=== PATIENT | male | born 1995 | race Caucasian/White ===

== ENCOUNTER 2016-06-18 01:38 | Emergency (ER) | payer OTHER ==
[2016-06-18] MEDS ORDERED: NS 1,000 ML IV ONE (01:43)
[2016-06-18] MEDS ORDERED: ONDANSETRON 4 MG/2 ML VIAL IVP ONE (01:43)
--- NOTE | 2016-06-18 01:43 | EDPHY ---
H & P HPI/ROS: HPI CHIEF COMPLAINT: Alcohol intoxication HISTORY OF PRESENT ILLNESS: This patient is a 20-year-old male may contact with EMS and police after he laid down on the sidewalk highly intoxicated with alcohol. There was no trauma reported. He presents emergency room somewhat somnolent however highly intoxicated with alcohol. Patient tells me he has not drank any alcohol this evening. History and review of systems somewhat limited due the patient's acute alcohol intoxication. Past Medical History: Unknown medical history Past Surgical History: Unknown surgical history Social History: [employer] student, denies drug use alcohol tobacco however obviously intoxicated here in the emergency room Family History: ROS REVIEW OF SYSTEMS: A comprehensive 10 point review of systems is otherwise negative aside from elements mentioned in the history of present illness. Exam Constitutional smells of alcohol, highly intoxicated with alcohol, somnolent triage nursing summary reviewed, vital signs reviewed Eyes normal conjunctivae and sclera, EOMI, PERRLA. HENT normal inspection, atraumatic, moist mucus membranes, no epistaxis, neck supple/ no meningismus, no raccoon eyes. Respiratory clear to auscultation bilaterally, normal breath sounds, no respiratory distress, no wheezing. Cardiovascular rate normal, regular rhythm, no murmur, no edema, distal pulses normal. Gastrointestinal soft, non-tender, no rebound, no guarding, normal bowel sounds, no distension, no pulsatile mass. Genitourinary no CVA tenderness. Musculoskeletal no midline vertebral tenderness, full range of motion, no calf swelling, no tenderness of extremities, no meningismus, good pulses, neurovascularly intact. Skin pink, warm, & dry, no rash, skin atraumatic. Neurologic horizontal beating nystagmus consistent with acute alcohol intoxication, responds to verbal stimuli. Psychiatric normal mood/affect. Heme/Lymph/Immune no lymphadenopathy. Differential Diagnosis: Includes but is not limited to in a particular order, acute alcohol intoxication, alcohol abuse, acute nausea vomiting from alcohol possible other substance Medical Decision Making: Patient had an IV established patient be given IV fluids and Zofran for nausea control will check an alcohol level. He will be placed on monitor for close observation. Re-evaluation: 0454: Re-evaluation at this time this patient still highly intoxicated with alcohol requiring supplemental oxygen. He is resting comfortably not vomiting. He will need further re-evaluation. 0608: re-evaluation this time this patient ambulated well to the bathroom without difficulty he is much more sober nail he is not slurring his speech she answers questions appropriately he does not have an ataxic gait. He will be discharged from the ER. Source: EMS Constitutional: Initial Vital Signs Temperature (C) 36.8 C 06/18/16 01:46 Heart Rate 88 06/18/16 01:46 Respiratory Rate 14 06/18/16 01:46 Blood Pressure 144/70 H 06/18/16 01:46 O2 Sat (%) 97 06/18/16 01:46 O2 Delivery Mode Nasal Cannula O2 (L/minute) 3 Allergies/Adverse Reactions: No Known Allergies Allergy (Unverified 06/18/16 01:45) Home Medications: Medication Instructions Recorded NK [No Known Home Meds] 06/18/16 Medical Decision Making - Data Points Laboratory Results: Laboratory Results 06/18/16 01:45 06/18/16 01:45 06/18/16 01:45 WBC 10.18 H 10^3/uL (3.80-9.50) RBC 5.49 10^6/uL (4.40-6.38) Hgb 17.2 g/dL (13.7-17.5) Hct 52.0 H % (40.0-51.0) MCV 94.7 fL (81.5-99.8) MCH 31.3 pg (27.9-34.1) MCHC 33.1 g/dL (32.4-36.7) RDW 12.2 % (11.5-15.2) Plt Count 165 10^3/uL (150-400) MPV 12.2 H fL (8.7-11.7) Neut % (Auto) 33.9 L % (39.3-74.2) Lymph % (Auto) 55.7 H % (15.0-45.0) [place] % (Auto) 6.8 % (4.5-13.0) Eos % (Auto) 2.4 % (0.6-7.6) Baso % (Auto) 1.0 % (0.3-1.7) Nucleat RBC Rel Count 0.0 % (0.0-0.2) Absolute Neuts (auto) 3.46 10^3/uL (1.70-6.50) Absolute Lymphs (auto) 5.67 H 10^3/uL (1.00-3.00) Absolute Monos (auto) 0.69 10^3/uL (0.30-0.80) Absolute Eos (auto) 0.24 10^3/uL (0.03-0.40) Absolute Basos (auto) 0.10 10^3/uL (0.02-0.10) Absolute Nucleated RBC 0.00 10^3/uL (0-0.01) Immature Gran % 0.2 % (0.0-1.1) Immature Gran # 0.02 10^3/uL (0.00-0.10) Sodium 148 H mEq/L (134-144) Potassium 3.6 mEq/L (3.5-5.2) Chloride 106 mEq/L (97-110) Carbon Dioxide 25 mEq/l (22-31) Anion Gap 17 mEq/L (8-16) BUN 9 mg/dL (7-23) Creatinine 1.3 mg/dL (0.7-1.3) Estimated GFR > 60 Glucose 138 H mg/dL (70-100) Calcium 9.1 mg/dL (8.5-10.4) Salicylates < 1.0 L mg/dL (2.0-20.0) Acetaminophen < 10 L mcg/mL (10.0-30.0) Ethyl Alcohol 282 H mg/dL (0-10) Medications Given: Discontinued Medications Sodium Chloride (Ns) 1,000 mls @ 0 mls/hr IV ONCE ONE PRN Reason: Wide Open Stop: 06/18/16 01:44 Last Admin: 06/18/16 01:54 Dose: 1,000 mls Ondansetron HCl (Zofran) 4 mg IVP EDNOW ONE Stop: 06/18/16 01:44 Last Admin: 06/18/16 01:55 Dose: 4 mg Departure - Departure Disposition: Home, Routine, Self-Care Clinical Impression: Alcoholic intoxication Qualifiers: Complication of substance-induced condition: uncomplicated Qualifier Code: ( F10.120) Alcohol abuse with intoxication, uncomplicated Condition: Good Instructions: Alcohol Intoxication (ED) Referrals: Patient,NotPresent [Primary Care Provider] - As per Instructions
[2016-06-18 01:59] LABS: % IMMATURE GRANULYOCYTES 0.2 % (0.0-1.1); ABSOLUTE IMMATURE GRANULOCYTES 0.02 10^3/uL (0.00-0.10); ADD DIFF? NO; ADD MORPH? NO; ADD SCAN? NO; ATYPICAL LYMPHOCYTE FLAG 0 (0-99); FRAGMENT RBC FLAG 0 (0-99); HEMOGLOBIN 17.2 g/dL (13.7-17.5); LEFT SHIFT FLG 0 (0-99); LIPEMIA HEMOLYSIS FLAG 80 (0-99); MEAN CELL HEMOGLOBIN 31.3 pg (27.9-34.1); MEAN CELL HEMOGLOBIN CONCENTR. 33.1 g/dL (32.4-36.7); MEAN CELL VOLUME 94.7 fL (81.5-99.8); MEAN PLATELET VOLUME 12.2 fL (8.7-11.7); PLATELET CLUMPS FLAG 10 (0-99); PLATELET COUNT 165 10^3/uL (150-400); RED BLOOD CELL COUNT 5.49 10^6/uL (4.40-6.38); RED CELL DISTRIBUTION WIDTH 12.2 % (11.5-15.2)
[2016-06-18 02:13] LABS: ANION GAP 17 mEq/L (8-16); CALCIUM 9.1 mg/dL (8.5-10.4); CARBON DIOXIDE 25 mEq/l (22-31); CHLORIDE 106 mEq/L (97-110); CREATININE 1.3 mg/dL (0.7-1.3); ETHANOL SERUM 282 mg/dL (0-10); GLOMERULAR FILTRATION RATE > 60; GLUCOSE 138 mg/dL (70-100); POTASSIUM 3.6 mEq/L (3.5-5.2); SALICYLATE < 1.0 mg/dL (2.0-20.0); SODIUM 148 mEq/L (134-144)
[2016-06-18 05:47] VITALS: RESP 16
[2016-06-18 06:36] VITALS: BP 140/88; PULSE 79; TEMP 97.9; O2SAT 96
== END 2016-06-18 06:42 | disposition home or self-care (01) ==
LOC: EDUNIT#
DX: F10.120 Alcohol abuse with intoxication, uncomplicated (principal)
CPT/HCPCS: 96374; G0480; J2405